=== PATIENT | male | born 1990 | race Two or more races ===

== ENCOUNTER → 2024-08-08 | Outpatient (BNVA) | payer MEDICAID, SELFPAY | END | disposition home or self-care (01) | PROVIDERS: PCP Nurse Practitioner Family; Referring Provider Nurse Practitioner Family; Visit Provider Nurse Practitioner Family | DX: J20.9 Acute bronchitis, unspecified (principal); T78.40XA Allergy, unspecified, initial encounter | CPT/HCPCS: 87804; 87811; 99213 ==